=== PATIENT | male | born 2000 | race Caucasian/White ===

== ENCOUNTER 2020-10-17 12:20 | Emergency (ER) | payer SELFPAY ==
[2020-10-17 12:33] VITALS: BP 143/91; PULSE 82; RESP 20; TEMP 36.7; O2SAT 100
--- NOTE | 2020-10-17 12:37 | ED_ITS ---
HPI - Dental/Oral General Chief complaint: Dental/Oral Stated complaint: Tooth Ache Source: patient History of Present Illness HPI Narrative: this is 20-year-old male presents with dental pain has chronic tooth decay over last couple of days had has had increased dental discomfort surrounding gum inflammation and right submandibular gland tenderness with no fever chills no shortness of breath. Patient does have an appointment with a dentist that scheduled. Complaint: tooth pain Teeth map: 1. Dental pain with surrounding gum inflammation Onset (ago): week(s) Severity: moderate Severity scale (1-10): 6 Exacerbating factors: nothing, chewing, cold and drinking fluids Context: history of dental caries Related Data Allergies Allergy/AdvReac Type Severity Reaction Status Date / Time No Known Allergies Allergy Verified 10/17/20 12:42 Review of Systems Review of Systems: All systems reviewed & are unremarkable except as noted in HPI and below PMFSH Past Medical History Medical History Tooth decay Social History Social History Gender identity (if verbalized by the patient): Male Exam 2 Const: General: no acute distress Orientation/consciousness: patient oriented x3 HENMT: Head: normal to inspection Other: right upper molar tooth decay with surrounding gum inflammation and tenderness Eyes: Pupils: Equal, round and reactive pupils present Neck: Other: right submandibular gland inflammation and swelling with tenderness Chest: Chest palpation & inspection: normal inspection of the chest Resp: Effort & Inspection: normal respiratory effort Auscultation: clear to auscultation bilaterally Cardio: Rate: regular rate Rhythm: regular rhythm GI: Auscultation: normal bowel sounds Urinary Catheter: Urinary Catheter: patent and draining Back/Spine/Pelvis: Back: no CVA tenderness Skin: General skin exam: normal color Rashes: no rashes Extrem: General: normal to inspection Psych: Appearance: grossly normal Mental Status: mental status grossly normal Course Course Emergency Course: advised patient to keep follow-up with his dentist and will be sending medication to his pharmacy the patient is content with that. Critical Care Time Critical Care Time Critical Care Time: No Discharge Plan Discharge Clinical Impression: Tooth decay, Dental abscess Patient Disposition: Home, Self-Care Condition: Stable Instructions: Antibiotic Form, Dental Abscess (ED) Additional Instructions: Keep follow-up appointment with dentist, take medicine as prescribed. Prescriptions: New naproxen 500 mg tablet 500 mg PO BID Qty: 20 RF: 0 amoxicillin 500 mg tablet 500 mg PO TID Qty: 30 RF: 0 naproxen 500 mg tablet 500 mg PO BID Qty: 20 RF: 0 amoxicillin 500 mg tablet 500 mg PO TID Qty: 30 RF: 0 Follow-up/Referrals: UNKNOWN,DOCTOR [Primary Care Provider] - Stand Alone Forms: Work/School Release IP Time of Disposition: 12:44
[2020-10-17 12:53] VITALS: PULSE 80; RESP 20; O2SAT 99
== END 2020-10-17 13:00 | disposition home or self-care (01) ==
PROVIDERS: Emergency Provider Emergency Medicine
DX: K02.9 Dental caries, unspecified (principal); K04.7 Periapical abscess without sinus
CPT/HCPCS: 99283

== ENCOUNTER 2021-01-10 21:06 | Emergency (ER) | payer SELFPAY ==
[2021-01-10 21:16] VITALS: BP 150/100; PULSE 81; RESP 20; TEMP 36.9; O2SAT 99
--- NOTE | 2021-01-10 21:16 | ED.DENTAL ---
HPI - Dental/Oral General Chief complaint: Dental/Oral Stated complaint: swelling in face Time Seen by Provider: 01/10/21 21:16 Source: patient Mode of arrival: ambulatory Limitations: no limitations History of Present Illness HPI Narrative: 20-year-old man is previously well comes in today complaining left-sided facial swelling that started today. Patient states that he has long had decay teeth and this particular area in his mouth began to her yesterday he states he has to chew on the other side of his mouth because of pain but has no difficulty swallowing, difficulty breathing, fever, vomiting. Complaint: tooth pain Onset (ago): day(s) (1) Duration: constant Severity: moderate Relieving factors: NSAIDs Exacerbating factors: chewing Context: history of dental caries Associated symptoms: gum swelling Related Data Allergies Allergy/AdvReac Type Severity Reaction Status Date / Time No Known Allergies Allergy Verified 10/17/20 12:42 Review of Systems Constitutional: Constitutional: Denies chills and Denies fever(s) Eyes: Eyes: Denies change in vision and Denies photophobia ENT: Denies dysphagia, Denies nasal congestion and Denies sore throat Cardiovascular: Cardiovascular: Denies chest pain and Denies radiating jaw, neck or arm pain Respiratory: Respiratory: Denies cough and Denies dyspnea Gastrointestinal: Gastrointestinal: Denies abdominal pain, Denies nausea and Denies vomiting Neurologic: Denies vertigo, Denies dizziness and Denies syncope Hematologic/Lymphatic: Hematologic/Lymphatic: Denies easy bleeding and Denies easy bruising Allergic/Immunologic: Allergic/Immunologic: Denies lip swelling and Denies throat swelling FOR[facility] Past Medical History Medical History Tooth decay Social History Social History (Updated 01/10/21 @ 21:23 by Tico Mcarthur MD) Smoking status: Current every day smoker Alcohol intake: never Substance use: current Substance use type: marijuana Gender identity (if verbalized by the patient): Male Exam Const: General: healthy appearing and alert Orientation/consciousness: patient oriented x3 Limitations: no limitations Other: mild acute distress. HENMT: Head: normal to inspection Ears: external ears normal, TM's normal bilaterally and EAC's normal General nose exam: Normal nares present Mouth: Yes moist mucous membranes Throat: posterior oropharynx normal Other: Diffuse dental decay. There is gingival swelling as well as swelling over the maxilla on the left, particularly near teeth 9-12. there is no overlying erythema or induration. Eyes: Conjunctivae: conjunctivae normal Pupils: Equal, round and reactive pupils present EOM: EOMs intact bilaterally Resp: Effort & Inspection: normal respiratory effort and not labored Auscultation: clear to auscultation bilaterally, no rales, no rhonchi and no wheezes Cardio: Rate: regular rate Rhythm: regular rhythm Heart sounds: no murmurs Skin: General skin exam: normal color, no jaundice and no pallor Rashes: no rashes Neuro: General: patient oriented x3, moves all extremities, no focal motor deficits and CN's II-XI intact bilaterally Speech: normal speech Extrem: General: normal to inspection and no clubbing, cyanosis or edema Psych: Appearance: grossly normal and well kempt Mental Status: mental status grossly normal Affect: normal affect Attitude: cooperative Thought content: Yes Normal thought content present Discharge Plan Discharge Clinical Impression: Dental abscess Patient Disposition: Home, Self-Care Condition: Stable Instructions: Antibiotic Form, Dental Abscess (ED) Additional Instructions: Call dentist next week for an appointment. Prescriptions: New clindamycin HCl 300 mg capsule 300 mg PO Q6H Qty: 40 RF: 0 acetaminophen-codeine 300-30 mg tablet 1 tablet PO Q4H PRN (Reason: pain) Qty: 12 RF: 0 Follow-u
[2021-01-10] MEDS: CLINDAMYCIN HCL 150 MG CAP 300 MG PO (21:24)
[2021-01-10] MEDS: IBUPROFEN 600 MG TABLET PO (21:24)
[2021-01-10 21:29] VITALS: BP 140/98; PULSE 84; RESP 20; O2SAT 99
== END 2021-01-10 21:36 | disposition home or self-care (01) ==
PROVIDERS: Emergency Provider Emergency Medicine
DX: K04.7 Periapical abscess without sinus (principal)
CPT/HCPCS: 99283; A9270

== ENCOUNTER 2021-03-27 11:05 | Emergency (ER) | payer MEDICAID, SELFPAY ==
[2021-03-27 11:46] VITALS: BP 129/82; PULSE 52; RESP 14; TEMP 36.6; O2SAT 98
--- NOTE | 2021-03-27 11:52 | ED.GENADULT ---
HPI - General Adult General Chief complaint: Dental/Oral Stated complaint: possible mouth abcesses Source: patient History of Present Illness HPI narrative: this patient with chronic dental pain with some tooth decay does follow with some local dental group is having pain and swelling in his left upper and right lower teeth and gums with no fever chills no shortness of breath no nausea vomiting. Onset (ago): day(s) Location: mouth Severity: moderate Related Data Allergies Allergy/AdvReac Type Severity Reaction Status Date / Time No Known Allergies Allergy Verified 10/17/20 12:42 Review of Systems Review of Systems: All systems reviewed & are unremarkable except as noted in HPI and below PMFSH Past Medical History Medical History Tooth decay Social History Social History Smoking status: Current every day smoker Alcohol intake: never Substance use: current Substance use type: marijuana Gender identity (if verbalized by the patient): Male Exam Const: General: no acute distress and alert Orientation/consciousness: patient oriented x3 HENMT: Head: normal to inspection Eyes: Conjunctivae: conjunctivae normal Pupils: Equal, round and reactive pupils present Neck: Neck: normal visual inspection Chest: Chest palpation & inspection: normal inspection of the chest Resp: Effort & Inspection: normal respiratory effort Auscultation: clear to auscultation bilaterally Cardio: Rate: regular rate Rhythm: regular rhythm GI: GI Palp: Yes Soft to palpation Urinary Catheter: Urinary Catheter: patent and draining Back/Spine/Pelvis: Back: no CVA tenderness Skin: General skin exam: normal color Rashes: no rashes Neuro: General: patient oriented x3 and moves all extremities Psych: Mental Status: mental status grossly normal Affect: normal affect Course Course Emergency Course: Advised patient to take medicine as prescribed including antibiotics and anti-inflammatory pain medicine and follow-up with the dental clinic. Critical Care Time Critical Care Time Critical Care Time: No Discharge Plan Discharge Clinical Impression: Dental abscess Patient Disposition: Home, Self-Care Condition: Stable Instructions: Antibiotic Form, Dental Abscess (ED) Additional Instructions: Take medicine as prescribed and follow-up with dentist soon as possible for further evaluation treatment. Prescriptions: New naproxen 500 mg tablet 500 mg PO BID Qty: 14 RF: 0 amoxicillin 500 mg capsule 500 mg PO TID Qty: 30 RF: 0 Follow-up/Referrals: Esperanza,MD Reji [Primary Care Provider] - Stand Alone Forms: Work/School Release IP Time of Disposition: 11:55
[2021-03-27 12:09] VITALS: PULSE 60; RESP 14; O2SAT 100
== END 2021-03-27 12:10 | disposition home or self-care (01) ==
PROVIDERS: Emergency Provider Emergency Medicine; PCP Family Medicine
DX: K04.7 Periapical abscess without sinus (principal)
CPT/HCPCS: 99283

== ENCOUNTER 2021-04-29 16:17 | Emergency (ER) | payer OTHER, SELFPAY ==
[2021-04-29 16:35] VITALS: BP 114/64; PULSE 79; RESP 20; TEMP 36.9; O2SAT 97
--- NOTE | 2021-04-29 16:45 | ED.DENTAL ---
HPI - Dental/Oral General Chief complaint: Dental/Oral Stated complaint: teeth pain Source: patient Mode of arrival: ambulatory Limitations: no limitations History of Present Illness HPI Narrative: this is a 21-year-old gentleman that presents with some chronic tooth decay recently had abscesses that were drained saw his dentist and started on amoxicillin. Patient presents today after seeing his dentist in getting any pain medication. Currently there is no shortness of breath no fever or chills. MD Complaint: tooth pain Onset (ago): day(s) Duration: constant Severity: moderate Severity scale (1-10): 6 Relieving factors: nothing Exacerbating factors: chewing Context: history of dental caries Related Data Allergies Allergy/AdvReac Type Severity Reaction Status Date / Time No Known Allergies Allergy Verified 10/17/20 12:42 Review of Systems Review of Systems: All systems reviewed & are unremarkable except as noted in HPI and below PMFSH Past Medical History Medical History Tooth decay Social History Social History Smoking status: Current every day smoker Alcohol intake: never Substance use: current Substance use type: marijuana Gender identity (if verbalized by the patient): Male Exam Const: General: no acute distress Orientation/consciousness: patient oriented x3 HENMT: Head: normal to inspection Other: Severe dental decay and abscess throughout his teeth Eyes: Conjunctivae: conjunctivae normal Pupils: Equal, round and reactive pupils present EOM: EOMs intact bilaterally Neck: Neck: normal visual inspection, no lymphadenopathy and no meningeal signs Chest: Chest palpation & inspection: normal inspection of the chest Resp: Effort & Inspection: normal respiratory effort Auscultation: clear to auscultation bilaterally Cardio: Rate: regular rate Rhythm: regular rhythm GI: Auscultation: normal bowel sounds Back/Spine/Pelvis: Back: no CVA tenderness Skin: General skin exam: normal color Rashes: no rashes Extrem: General: normal to inspection and no pedal edema Psych: Appearance: grossly normal Mental Status: mental status grossly normal Course Course Emergency Course: patient declined pain medication and advised to continue his current antibiotics and will send pain medication to his pharmacy. Vital Signs Vital signs: Vital Signs Temperature 36.9 C 04/29/21 16:35 Pulse Rate 79 04/29/21 16:35 Respiratory Rate 20 04/29/21 16:35 Blood Pressure 114/64 04/29/21 16:35 Pulse Oximetry 97 04/29/21 16:35 Temperature 36.9 C 04/29/21 16:35 Pulse Rate 79 04/29/21 16:35 Respiratory Rate 20 04/29/21 16:35 Blood Pressure 114/64 04/29/21 16:35 Pulse Oximetry 97 04/29/21 16:35 Critical Care Time Critical Care Time Critical Care Time: No Discharge Plan Discharge Clinical Impression: Dental abscess, Tooth decay, Toothache Patient Disposition: Home, Self-Care Condition: Stable Instructions: Antibiotic Form, Dental Abscess (ED), Toothache (ED) Additional Instructions: Advised to continue antibiotics, take medicine as prescribed and follow-up with dentist. Prescriptions: New tramadol [Ultram] 50 mg tablet 50 mg PO Q6H PRN (Reason: pain) Qty: 14 RF: 0 No Action naproxen 500 mg tablet 500 mg PO BID Qty: 14 RF: 0 amoxicillin 500 mg capsule 500 mg PO TID Qty: 30 RF: 0 Follow-up/Referrals: Esperanza,MD Reji [Primary Care Provider] - Stand Alone Forms: Work/School Release IP Time of Disposition: 16:50
[2021-04-29 16:59] VITALS: PULSE 75; RESP 20; O2SAT 98
== END 2021-04-29 17:05 | disposition home or self-care (01) ==
PROVIDERS: Emergency Provider Emergency Medicine; PCP Family Medicine
DX: K04.7 Periapical abscess without sinus (principal); K02.9 Dental caries, unspecified; K08.89 Other specified disorders of teeth and supporting structures
CPT/HCPCS: 99283

== ENCOUNTER 2025-08-04 09:50 | Emergency (ER) | payer SELFPAY ==
[2025-08-04 09:54] VITALS: BP 144/94; PULSE 62; RESP 16; TEMP 36.6; O2SAT 100
--- NOTE | 2025-08-04 10:01 | ED.DENTAL ---
HPI - Dental/Oral General Chief complaint: Dental/Oral Stated complaint: dental pain Time Seen by Provider: 08/04/25 09:57 Source: patient and family Mode of arrival: ambulatory Limitations: no limitations History of Present Illness HPI Narrative: this is a 25-year-old male that has a history of tooth decay and some having increased pain inflammation in tooth 11,12 13,14 with some left submandibular gland swelling and tenderness with no fever chills no shortness of breath MD Complaint: tooth pain Teeth map:  1. dental decay with some surrounding gum inflammation Onset (ago): month(s) Duration: constant Severity: moderate Severity scale (1-10): 6 Relieving factors: nothing Exacerbating factors: chewing and cold Context: history of dental caries Related Data Allergies Allergy/AdvReac Type Severity Reaction Status Date / Time cephalexin (From Keflex) Allergy Severe Anaphylaxis Verified 08/04/25 09:57 Review of Systems Review of Systems: All systems reviewed & are unremarkable except as noted in HPI and below PMFSH Past Medical History Medical History Tooth decay Social History Social History Smoking status: Current every day smoker Alcohol intake: never Substance use: current Substance use type: marijuana Gender identity (if verbalized by the patient): Male Exam Const: General: healthy appearing and no acute distress Nutritional Appearance: well nourished and thin Orientation/consciousness: patient oriented x3 Limitations: no limitations Neck: Neck: normal visual inspection and lymphadenopathy Chest: Chest palpation & inspection: normal inspection of the chest Resp: Effort & Inspection: normal respiratory effort Auscultation: clear to auscultation bilaterally Cardio: Rate: regular rate Rhythm: regular rhythm GI: GI Palp: Yes Soft to palpation Auscultation: normal bowel sounds Course Course Emergency Course: patient was given Toradol for dental pain and antibiotics sent to patient's local pharmacy. Vital Signs Vital signs: Vital Signs Temperature 36.6 C 08/04/25 09:54 Pulse Rate 62 08/04/25 09:54 Respiratory Rate 16 08/04/25 09:54 Blood Pressure 144/94 H 08/04/25 09:54 Pulse Oximetry 100 08/04/25 09:54 Oxygen Delivery Room Air 08/04/25 09:54 Temperature 36.6 C 08/04/25 09:54 Pulse Rate 62 08/04/25 09:54 Respiratory Rate 16 08/04/25 09:54 Blood Pressure 144/94 H 08/04/25 09:54 Pulse Oximetry 100 08/04/25 09:54 Oxygen Delivery Room Air 08/04/25 09:54 Critical Care Time Critical Care Time Critical Care Time: No Discharge Plan Discharge Clinical Impression: Dental abscess, Toothache Patient Disposition: Home Condition: Stable Instructions: Antibiotic Form, Dental Abscess (ED), Toothache (ED) Additional Instructions: Take medicine as prescribed and follow-up with dentist for further evaluation and treatment. Patient Language: [place]an Prescriptions: No Action naproxen 500 mg tablet 500 mg PO BID Qty: 14 0RF amoxicillin 500 mg capsule 500 mg PO TID Qty: 30 0RF tramadol [Ultram] 50 mg tablet 50 mg PO Q6H PRN (Reason: pain) Qty: 14 0RF Follow-up/Referrals: Fritz Burgess MD [Primary Care Provider, Internal Medicine] Stand Alone Forms: Work/School Release IP
[2025-08-04] MEDS: KETOROLAC (*BKC) 60 MG/2 ML VIAL IM (10:27)
[2025-08-04] MEDS: ONDANSETRON HCL ODT 4 MG TABLET PO (10:27)
[2025-08-04 10:51] VITALS: BP 144/94; PULSE 62; RESP 16; TEMP 36.6; O2SAT 100
== END 2025-08-04 10:51 | disposition home or self-care (01) ==
LOC: CHSED 10:20
PROVIDERS: Emergency Provider Emergency Medicine; PCP Family Medicine
DX: K04.7 Periapical abscess without sinus (principal); F17.200 Nicotine dependence, unspecified, uncomplicated
CPT/HCPCS: 96372; 99283; A9270; J1885